=== PATIENT | female | born 1970 | race Two or more races ===

== ENCOUNTER 2023-04-05 19:26 | Emergency (ER) | payer MEDICAID ==
[~2023-04-05] VITALS: Ht 162.6 cm; Wt 86.2 kg
[2023-04-05] MEDS ORDERED: ONDANSETRON 4 MG/2 ML VIAL IV ONE (20:15)
[2023-04-05] MEDS ORDERED: IV NORMAL SALINE 1000 ML BAG IV ONE (20:15)
[2023-04-05] MEDS ORDERED: HYDROMORPHONE 1 MG/1 ML DISP.SYRIN IV ONE (20:15)
[2023-04-05] MEDS ORDERED: ONDANSETRON 4 MG/2 ML VIAL ONE (20:29)
[2023-04-05] MEDS ORDERED: HYDROMORPHONE 1 MG/1 ML DISP.SYRIN ONE (20:29)
[2023-04-05 20:33] LABS: BASOPHILS # (AUTO) 0.1 K/UL (0.0-0.2); BASOPHILS % (AUTO) 0.8 % (0.0-2.0); EOSINOPHILS # (AUTO) 0.1 K/uL (0.0-0.7); EOSINOPHILS % (AUTO) 1.4 % (0.0-7.0); HEMATOCRIT 41.6 % (31.2-41.9); HEMOGLOBIN 14.2 g/dL (10.9-14.3); LYMPHOCYTES # (AUTO) 1.6 K/uL (0.8-4.8); LYMPHOCYTES % (AUTO) 25.3 % (20.5-51.5); MEAN CORPUSCULAR HEMOGLOBIN 30.6 uug (24.7-32.8); MEAN CORPUSCULAR HGB CONC 34 g/dL (32.3-35.6); MEAN CORPUSCULAR VOLUME 89.6 fL (75.5-95.3); MONOCYTES # (AUTO) 0.3 K/uL (0.1-1.30); MONOCYTES % (AUTO) 4.8 % (0.0-11.0); NEUTROPHILS # (AUTO) 4.2 K/uL (1.8-8.9); NEUTROPHILS % (AUTO) 67.7 % (38.5-71.5); PLATELET COUNT (AUTO) 238 K/uL (179-408); RED BLOOD CELL COUNT(AUTO) 4.64 MIL/uL (3.63-4.92); RED CELL DISTRIBUTION WIDTH 13.7 % (12.3-17.7); WHITE BLOOD COUNT (AUTO) 6.2 K/uL (3.8-11.8)
[2023-04-05 20:37] LABS: DIFFERENTIAL COMMENT 1
[2023-04-05 20:43] LABS: CALCIUM 10.2 mg/dL (8.5-10.1)
[2023-04-05 20:49] LABS: ALBUMIN 4.2 g/dL (3.4-5.0); BILIRUBIN,DIRECT 0.1 mg/dL (0.0-0.2); BILIRUBIN,TOTAL 0.5 mg/dL (0.2-1.0); TOTAL PROTEIN, SERUM 7.8 g/dL (6.4-8.2)
[2023-04-05] MEDS ORDERED: DICY20TA11 PO (21:10)
[2023-04-05] MEDS ORDERED: LOPE-195 PO (21:10)
[2023-04-05] MEDS ORDERED: ONDA4TAB5 PO (21:10)
[2023-04-05 22:50] VITALS: BP 125/73; TEMP 98.5; O2SAT 99
== END 2023-04-05 22:51 | disposition home or self-care (01) ==
LOC: ER 19:27
DX: R11.2 Nausea with vomiting, unspecified (principal); R19.7 Diarrhea, unspecified; R10.84 Generalized abdominal pain; Z79.2 Long term (current) use of antibiotics; Z79.899 Other long term (current) drug therapy
CPT/HCPCS: 99285; 74176; 96374; 96361; 96375; 80076; 80048; 83690; 85025; 36415; J2405; J1170; J7040; A4663

== ENCOUNTER 2024-08-02 19:28 | Emergency (ER) | payer MEDICAID ==
[~2024-08-02] VITALS: Ht 167.6 cm; Wt 93.0 kg
[~2024-08-02 19:28] MED LIST: DICY20TA11 PO; LOPE-195 PO; ONDA4TAB5 PO
[2024-08-02] MEDS ORDERED: ALBUTEROL SULFATE 2.5 MG/ 0.5 ML NEBU ONE (20:09)
[2024-08-02] MEDS ORDERED: IPRATROPIUM BROMIDE 0.5 MG/2.5 ML NEBU ONE (20:10)
[2024-08-02] MEDS ORDERED: ONDANSETRON 4 MG/2 ML VIAL ONE (20:19)
[2024-08-02] MEDS ORDERED: ACETAMINOPHEN 500 MG TABLET ONE (20:19)
[2024-08-02] MEDS: ONDANSETRON 4 MG/2 ML VIAL IV ONE (20:25)
[2024-08-02] MEDS: ACETAMINOPHEN 500 MG TABLET PO ONE (20:25)
[2024-08-02 20:31] LABS: BASOPHILS % (AUTO) 0.8 % (0.0-2.0); EOSINOPHILS # (AUTO) 0.1 K/uL (0.0-0.7); EOSINOPHILS % (AUTO) 1.9 % (0.0-7.0); HEMATOCRIT 37.9 % (31.2-41.9); HEMOGLOBIN 12.9 g/dL (10.9-14.3); LYMPHOCYTES % (AUTO) 30.7 % (20.5-51.5); MEAN CORPUSCULAR HEMOGLOBIN 30.8 uug (24.7-32.8); MEAN CORPUSCULAR HGB CONC 34 g/dL (32.3-35.6); MEAN CORPUSCULAR VOLUME 90.2 fL (75.5-95.3); MONOCYTES # (AUTO) 0.4 K/uL (0.1-1.30); NEUTROPHILS # (AUTO) 1.8 K/uL (1.8-8.9); NEUTROPHILS % (AUTO) 55.6 % (38.5-71.5); PLATELET COUNT (AUTO) 126 K/uL (179-408); RED CELL DISTRIBUTION WIDTH 14.1 % (12.3-17.7); WHITE BLOOD COUNT (AUTO) 3.2 K/uL (3.8-11.8)
[2024-08-02 20:39] LABS: DIFFERENTIAL COMMENT 1
[2024-08-02 20:42] LABS: CALCIUM 8.4 mg/dL (8.5-10.1); CARBON DIOXIDE 26 mmol/L (21-32); CHLORIDE 103 mmol/L (98-107); CREATININE 0.7 mg/dL (0.6-1.3); GLUCOSE 106 mg/dL (74-106); POTASSIUM 3.6 mmol/L (3.5-5.1); SODIUM SERUM 141 mmol/L (136-145); UREA NITROGEN, BLOOD 7 mg/dL (7-18)
[2024-08-02 20:45] VITALS: O2SAT 96
[2024-08-02] MEDS: IPRATROPIUM BROMIDE 0.5 MG/2.5 ML NEBU NEB ONE (20:45)
[2024-08-02] MEDS: ALBUTEROL SULFATE 2.5 MG/3 ML NEBU NEB ONE (20:46)
[2024-08-02 20:55] LABS: ALANINE AMINOTRANSFERASE 65 U/L (14-59); ALBUMIN 3.4 g/dL (3.4-5.0); ALKALINE PHOSPHATASE 94 U/L (50-136); ASPARTATE AMINOTRANSFERASE 29 U/L (15-37); BILIRUBIN,DIRECT 0.1 mg/dL (0.0-0.2); BILIRUBIN,TOTAL 0.2 mg/dL (0.2-1.0); NT-PRO BNP 19 pg/mL (0-125); TOTAL PROTEIN, SERUM 7.2 g/dL (6.4-8.2)
[2024-08-02] MEDS ORDERED: AZIT200S40 PO (21:44)
[2024-08-02] MEDS ORDERED: ALBU18HF2 INH (21:44)
[2024-08-02] MEDS ORDERED: PROM118S5 PO (21:44)
[2024-08-02] MEDS ORDERED: METH4TAB21 PO (21:44)
[2024-08-02] MEDS: DEXAMETHASONE SOD PHOSPHATE 4 MG INJ IV ONE (21:45)
[2024-08-02] MEDS ORDERED: DEXAMETHASONE SOD PHOSPHATE 4 MG INJ IM ONE (21:45)
[2024-08-02 22:30] VITALS: BP 128/64; TEMP 98.7; O2SAT 96
== END 2024-08-02 22:30 | disposition home or self-care (01) ==
LOC: ER 19:28
DX: J20.9 Acute bronchitis, unspecified (principal); R35.0 Frequency of micturition; J18.9 Pneumonia, unspecified organism; Z79.52 Long term (current) use of systemic steroids; Z85.3 Personal history of malignant neoplasm of breast
CPT/HCPCS: 99284; 96374; 71045; 96375; 80076; 80048; 83880; 85025; 87040 ×2; 84484; 36415; 94640; 83605; J1100; J2405; A4606; A4663; A9150; J3590